=== PATIENT | female | born 1970 | race Caucasian/White ===

== ENCOUNTER 2016-08-20 19:23 | Emergency (ER) | payer MEDICAID ==
[2016-08-20 19:48] VITALS: BP 133/67
--- NOTE | 2016-08-20 20:12 | EDM.PDOC ---
ED HPI Behavioral Health - General Chief Complaint: Drug or Alcohol Abuse Stated Complaint: EVAL Time Seen by Provider: 08/20/16 19:55 Source: Reports: Patient, Family Exam Limitations: Reports: Intoxication - History of Present Illness INITIAL COMMENTS - FREE TEXT/NARRATIVE: 45-year-old chronic alcoholic with recurring detox and treatments has been "doing well" recently but is very intoxicated today and would like to go to detox. She is brought in by her mother. Severity: moderate - Related Data Allergies Allergy/AdvReac Type Severity Reaction Status Date / Time No Known Allergies Allergy Verified 08/20/16 19:38 Home Medications: Home Meds Norethindrone [Jolivette] 0.35 mg PO DAILY 10/01/14 [History] ALPRAZolam [Alprazolam] 0.5 mg PO ASDIRECTED PRN 07/16/15 [History] Potassium Chloride 10 meq PO BID 07/01/16 [History] buPROPion HCl [Wellbutrin SR] 300 mg PO DAILY 07/01/16 [History] Acamprosate [Campral] 333 mg PO ONETIME 08/20/16 [History] DULoxetine HCl [Duloxetine HCl] 1 tab PO DAILY 08/20/16 [History] Zolpidem [Ambien] 5 mg PO BEDTIME PRN 08/20/16 [History] Denies pain Pain Score (Numeric/FACES): 0 Past Medical History - Past Health History Medical/Surgical History: Denies Medical/Surgical History W[employer] History: Reports: Psychiatric History: Reports: Addiction, Anxiety, Depression, Other (see below) Other Psychiatric History: alcohol abuse - Infectious Disease History Infectious Disease History: Reports: Chicken pox - Past Surgical History HEENT Surgical History: Reports: Adenoidectomy, Tonsillectomy Social & Family History - Tobacco Use Smoking Status *Q: Current Every Day Smoker Years of Tobacco use: 25 Packs/Tins Daily: 1 Used Tobacco, but Quit: No Second Hand Smoke Exposure: Yes - Caffeine Use Caffeine Use: Reports: Coffee - Alcohol Use Days Per Week of Alcohol Use: 7 Number of Drinks Per Day: 10 Total Drinks Per Week: 70 - Recreational Drug Use Recreational Drug Use: No ED ROS GENERAL - Review of Systems Review Of Systems: See Below Constitutional: Denies: fever Respiratory: Denies: shortness of breath, cough Cardiovascular: Denies: Chest pain GI/Abdominal: Denies: Abdominal pain, Nausea : Reports: no symptoms Skin: Reports: no symptoms Neurological: Reports: other (Some slurred speech from her intoxication) ED EXAM, BEHAVIORAL HEALTH - Physical Exam Exam: See Below Exam Limited By: Intoxication General Appearance: alert, no apparent distress Eye Exam: bilateral eye: abnormal EOM (No jaundice) Respiratory/Chest: no respiratory distress, lungs clear Cardiovascular: regular rate, rhythm Neurological: alert Psychiatric: alert, other (Very intoxicated) Skin Exam: Warm, Dry COURSE, BEHAVIORAL HEALTH COMP - Course Vital Signs: Last Vital Signs Temp 98.1 F 08/20/16 19:48 Pulse 98 08/20/16 19:48 Resp 16 08/20/16 19:48 BP 133/67 08/20/16 19:48 Pulse Ox 96 08/20/16 19:48 Orders, Labs, Meds: Laboratory Tests 08/20/16 08/20/16 08/20/16 Range/Units 19:55 19:55 19:55 WBC 5.1 (4.5-11.0) K/uL RBC 4.30 (3.30-5.50) M/uL Hgb 14.8 (12.0-15.0) g/dL Hct 42.3 (36.0-48.0) % MCV 98 (80-98) fL MCH 34 H (27-31) pg MCHC 35 (32-36) % Plt Count 123 L (150-400) K/uL Neut % (Auto) 46 (36-66) % Lymph % (Auto) 42 (24-44) % Hill % (Auto) 9 H (2-6) % Eos % (Auto) 2 (2-4) % Baso % (Auto) 2 H (0-1) % Sodium 143 (140-148) mmol/L Potassium 3.4 L (3.6-5.2) mmol/L Chloride 102 (100-108) mmol/L Carbon Dioxide 27 (21-32) mmol/L Anion Gap 17.4 H (5.0-14.0) mmol/L BUN 12 D (7-18) mg/dL Creatinine 0.6 (0.6-1.0) mg/dL Est Cr Clr Drug Dosing 91.86 mL/min Estimated GFR (MDRD) > 60 (>60) Glucose 90 (74-106) mg/dL Calcium 8.3 L (8.5-10.1) mg/dL Urine Opiates Screen (NEGATIVE) Ur Oxycodone Screen (NEGATIVE) Urine Methadone Screen (NEGATIVE) Ur Propoxyphene Screen (NEGATIVE) Ur Barbiturates Screen (NEGATIVE) Ur Tricyclics Screen (NEGATIVE) Ur Phencyclidine Scrn (NEGATIVE) Ur Amphetamine Screen (NEGATIVE) U Methamphetamines Scrn (NEGATIVE) Urine MDMA Screen (NEGATIVE) U Benzodiazepines Scrn (NEGATIVE) U Cocaine Metab Screen (NEGATIVE) U Marijuana (THC) Screen (NEGATIVE) Ethyl Alcohol 444 mg/dL 08/20/16 Range/Units 20:08 WBC (4.5-11.0) K/uL RBC (3.30-5.50) M/uL Hgb (12.0-15.0) g/dL Hct (36.0-48.0) % MCV (80-98) fL MCH (27-31) pg MCHC (32-36) % Plt Count (150-400) K/uL Neut % (Auto) (36-66) % Lymph % (Auto) (24-44) % Hill % (Auto) (2-6) % Eos % (Auto) (2-4) % Baso % (Auto) (0-1) % Sodium (140-148) mmol/L Potassium (3.6-5.2) mmol/L Chloride (100-108) mmol/L Carbon Dioxide (21-32) mmol/L Anion Gap (5.0-14.0) mmol/L BUN (7-18) mg/dL Creatinine (0.6-1.0) mg/dL Est Cr Clr Drug Dosing mL/min Estimated GFR (MDRD) (>60) Glucose (74-106) mg/dL Calcium (8.5-10.1) mg/dL Urine Opiates Screen Negative (NEGATIVE) Ur Oxycodone Screen Negative (NEGATIVE) Urine Methadone Screen Negative (NEGATIVE) Ur Propoxyphene Screen Negative (NEGATIVE) Ur Barbiturates Screen Negative (NEGATIVE) Ur Tricyclics Screen Negative (NEGATIVE) Ur Phencyclidine Scrn Negative (NEGATIVE) Ur Amphetamine Screen Negative (NEGATIVE) U Methamphetamines Scrn Negative (NEGATIVE) Urine MDMA Screen Negative (NEGATIVE) U Benzodiazepines Scrn Positive H (NEGATIVE) U Cocaine Metab Screen Negative (NEGATIVE) U Marijuana (THC) Screen Negative (NEGATIVE) Ethyl Alcohol mg/dL Medications Discontinued Medications Generic Name Dose Route Start Last Admin Trade Name Madina PRN Reason Stop Dose Admin Multivitamins/Minerals 10 ml/ 1,017.2 mls @ 1,000 mls/hr 08/20/16 20:30 08/20 20:43 Thiamine HCl 100 mg/ Folic IV 1,000 mls/hr Acid 1 mg/ Magnesium Sulfate 3 ASDIRECTED MYAH Administration gm/ Sodium Chloride Re-Assessment/Re-Exam: Patient ambulates without difficulty, is taking fluids and despite being intoxicated she is not physically ill. A CBC, BMP and EtOH along with urine drug screen were obtained for screening to admission to detox. EtOH returned 0.444. An IV was then started and the patient was given a banana bag with alcohol being to lower her alcohol level to where she can go to [facility]. Patient received a full liter of fluid with multivitamins and magnesium. Her parents then transferred her to [facility] for detox. Departure - Departure Time of Disposition: 21:52 Disposition: DC/Tfer to Other Condition: fair Clinical Impression: Alcoholism, chronic Alcohol intoxication Qualifiers: Complication of substance-induced condition: uncomplicated Qualified Code(s): F10.120 - Alcohol abuse with intoxication, uncomplicated Instructions: Alcohol Use Disorder, Alcohol Intoxication, [id number] Referrals: Macie Allen PA [Primary Care Provider] - Forms: ED Department Discharge Care Plan Goals: Go directly to [facility] for admission for detox and treatment.
[2016-08-20] MEDS ORDERED: MVI, Adult with Vitamin K 10 ML, Thiamine 100 MG, Folic Acid 1 MG, Magnesium Sulfate 3 ... IV SCH ×5 (20:30)
== END 2016-08-20 21:52 | disposition other institution (70) ==
LOC: JP.ED 19:23
DX: F10.220 Alcohol dependence with intoxication, uncomplicated (principal); F17.210 Nicotine dependence, cigarettes, uncomplicated; Z79.899 Other long term (current) drug therapy; Z98.890 Other specified postprocedural states
CPT/HCPCS: 36415; 80048; 80305; 85025; 96365; 99283; G0480; J3411; J3475; J7040; J3490

== ENCOUNTER 2016-10-16 16:40 | Emergency (ER) | payer MEDICAID ==
[2016-10-16 17:07] VITALS: BP 146/93
[2016-10-16] MEDS ORDERED: LORazepam 2 MG/ML MDV IM PRN (17:56)
--- NOTE | 2016-10-16 18:02 | EDM.PDOC ---
ED HPI Behavioral Health - General Chief Complaint: Drug or Alcohol Abuse Stated Complaint: ALCOHOLISM Time Seen by Provider: 10/16/16 17:41 Source: Reports: Patient, Old records, RN notes reviewed Exam Limitations: Reports: No limitations - History of Present Illness INITIAL COMMENTS - FREE TEXT/NARRATIVE: 45-year-old female presents emergency department today asking for help with her alcohol abuse, she has been to the emergency department several times for alcohol intoxication has been to [facility] on multiple occasions. She is adamant that she wants to stop drinking does not want to go to [facility] she has reestablished with her sponsor she has a caregiver at home she would like to go through withdrawals at home and is asking for help - Related Data Allergies Allergy/AdvReac Type Severity Reaction Status Date / Time No Known Allergies Allergy Verified 08/20/16 19:38 Home Medications: Home Meds Norethindrone [Jolivette] 0.35 mg PO DAILY 10/01/14 [History] ALPRAZolam [Alprazolam] 0.5 mg PO ASDIRECTED PRN 07/16/15 [History] Potassium Chloride 10 meq PO BID 07/01/16 [History] buPROPion HCl [Wellbutrin SR] 300 mg PO DAILY 07/01/16 [History] Acamprosate [Campral] 333 mg PO ONETIME 08/20/16 [History] DULoxetine HCl [Duloxetine HCl] 1 tab PO DAILY 08/20/16 [History] Zolpidem [Ambien] 5 mg PO BEDTIME PRN 08/20/16 [History] 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: Psychiatric History: Reports: Addiction (Alcohol), Anxiety, Depression - Infectious Disease History Infectious Disease History: Reports: Chicken pox - Past Surgical History HEENT Surgical History: Reports: Adenoidectomy, Tonsillectomy Social & Family History - Tobacco Use Smoking Status *Q: Current Every Day Smoker Years of Tobacco use: 30 Packs/Tins Daily: 1 Used Tobacco, but Quit: No Second Hand Smoke Exposure: No - Caffeine Use Caffeine Use: Reports: Coffee - Alcohol Use Days Per Week of Alcohol Use: 7 Number of Drinks Per Day: 25 Total Drinks Per Week: 175 Date of Last Drink: 10/16/16 Time of Last Drink: 16:30 - Recreational Drug Use Recreational Drug Use: No ED ROS GENERAL - Review of Systems Review Of Systems: See Below Constitutional: Reports: other (Tremors shaking) HEENT: Reports: No symptoms Respiratory: Reports: No Symptoms Cardiovascular: Reports: No symptoms GI/Abdominal: Reports: No symptoms : Reports: no symptoms Psychiatric: Reports: Agitation ED EXAM, BEHAVIORAL HEALTH - Physical Exam Exam: See Below Exam Limited By: No limitations General Appearance: alert, WD/WN, mild distress Respiratory/Chest: no respiratory distress, lungs clear, normal breath sounds, no accessory muscle use Cardiovascular: no murmur, tachycardia Neurological: tremor Psychiatric: alert, normal affect, normal cognition, oriented, agitated COURSE, BEHAVIORAL HEALTH COMP - Course Vital Signs: Last Vital Signs Temp 98.2 F 10/16/16 17:08 Pulse 112 H 10/16/16 17:08 Resp 16 10/16/16 17:08 BP 146/93 H 10/16/16 17:08 Pulse Ox 95 10/16/16 17:08 Orders, Labs, Meds: Active Orders 24 hr Category Date Time Status LORazepam [Ativan] Med 10/16/16 17:56 Ordered 1 mg IM ONETIME PRN Medication Orders Lorazepam (Ativan) 1 mg IM ONETIME PRN PRN Reason: Anxiety Medications Generic Name Dose Route Start Last Admin Trade Name Freq PRN Reason Stop Dose Admin Lorazepam 1 mg 10/16/16 17:56 Ativan IM ONETIME PRN Anxiety Departure - Departure Time of Disposition: 18:01 Disposition: Home, Self-Care 01 Condition: fair Clinical Impression: Alcohol abuse Forms: ED Department Discharge Additional Instructions: Use Ativan as needed to help control the tremor symptoms, please call return to the ED with worsening symptoms, please report to your primary care provider in 3 -4 days for reevaluation - My Orders Last 24 Hours: My Active Orders 10/16/16 17:56 LORazepam [Ativan] 1 mg IM ONETIME PRN - Assessment/Plan Last 24 Hours: My Active Orders 10/16/16 17:56 LORazepam [Ativan] 1 mg IM ONETIME PRN Plan: Assessment Acuity = acute on chronic Site and laterality = alcohol abuse and dependence Etiology = Rum Manifestations = tremors Location of injury = home Lab values = none Plan I had a long discussion with her about alcohol withdrawal and delirium tremors she assures me she has a sponsor as well as a caregiver at home, I agreed to provide her with Ativan which she can use for symptomatic relief during her withdrawal. If the symptoms get worse she is to return to the emergency department otherwise follow up with her primary care in 3-4 days for reevaluation Patient was in agreement with the plan all questions were answered, they were instructed to return to the emergency department or call for worsening symptoms. This note was dictated using [employer] voice recognition software please call with any questions.
== END 2016-10-16 18:12 | disposition home or self-care (01) ==
LOC: JP.ED 16:40
DX: F10.10 Alcohol abuse, uncomplicated (principal); F41.9 Anxiety disorder, unspecified; F32.9 Major depressive disorder, single episode, unspecified; F17.210 Nicotine dependence, cigarettes, uncomplicated; Z98.890 Other specified postprocedural states; Z79.899 Other long term (current) drug therapy
CPT/HCPCS: 96372; 99284; J2060

== ENCOUNTER 2018-09-08 16:32 | Emergency (ER) | payer MEDICAID ==
[2018-09-08] MEDS ORDERED: Sodium Chloride 0.9% 10 ML Syringe FLUSH PRN (18:24)
[2018-09-08] MEDS ORDERED: fentaNYL 100 MCG/2 ML SDV IVPUSH ONE (18:25)
--- NOTE | 2018-09-08 18:29 | EDM.PDOC ---
ED HPI GENERAL MEDICAL PROBLEM - General Chief Complaint: Abdominal Pain Stated Complaint: ABD PAIN Time Seen by Provider: 09/08/18 18:07 Source of Information: Reports: Patient, Old Records, RN Notes Reviewed History Limitations: Reports: No Limitations - History of Present Illness INITIAL COMMENTS - FREE TEXT/NARRATIVE: 47-year-old female presents emergency department day complaint of abdominal pain mainly in her pelvic area, she does have a history of chronic alcoholism as well as an intra-abdominal abscess status post interventional radiology drainage. She states her last 24 hours she's developed abdominal pain with distention pain is positional worse when she stands up compared to lying down. No other symptoms nausea vomiting shortness breath chest pain no fevers no difficulties with urination or bowel movements Lower Abdominal Pain Score (Numeric/FACES): 2 - Related Data Allergies Allergy/AdvReac Type Severity Reaction Status Date / Time No Known Allergies Allergy Verified 05/22/18 09:46 Home Meds: Home Meds ALPRAZolam [Alprazolam] 0.5 mg PO ASDIRECTED PRN 07/16/15 [History] Zolpidem [Ambien] 5 mg PO BEDTIME PRN 08/20/16 [History] Cholecalciferol (Vitamin D3) [Vitamin D] 1 tab PO DAILY 01/14/18 [History] Methocarbamol 1 tab PO TID PRN 01/14/18 [History] PNV95/Ferrous Fumarate/FA [ Vitamins Tablet] 1 tab PO DAILY 01/14/18 [ History] traZODone HCl [Trazodone HCl] 100 mg PO DAILY PRN 01/14/18 [History] Ibuprofen [Advil] 200 mg PO Q6H PRN 09/08/18 [History] Past Medical History HEENT History: Reports: Impaired Vision Gastrointestinal History: Reports: Other (See Below) Other Gastrointestinal History: went almost 13 days without eating, emisis anytime she eat/drink anything. 05/2018 had abdominal mass removed with drainage of excess abdominal fluid. 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 Musculoskeletal Surgical History: Reports: None Social & Family History - Family History Family Medical History: Noncontributory - Tobacco Use Smoking Status *Q: Current Every Day Smoker Years of Tobacco use: 30 Packs/Tins Daily: 0.5 - Caffeine Use Caffeine Use: Reports: Coffee - Recreational Drug Use Recreational Drug Use: No ED ROS GENERAL - Review of Systems Review Of Systems: ROS reveals no pertinent complaints other than HPI. ED EXAM, GI/ABD - Physical Exam Exam: See Below Exam Limited By: No Limitations General Appearance: Alert, WD/WN, No Apparent Distress Head: Atraumatic, Normocephalic Neck: Normal Inspection, Supple, Non-Tender, Full Range of Motion Respiratory/Chest: No Respiratory Distress, Lungs Clear, Normal Breath Sounds, No Accessory Muscle Use, Chest Non-Tender Cardiovascular: Normal Peripheral Pulses, Regular Rate, Rhythm, No Murmur GI/Abdominal Exam: Soft, Distended, Guarding (Pelvic area), Tender Extremities: Normal Inspection, Non-Tender, No Pedal Edema Course - Vital Signs Last Recorded V/S: Last Vital Signs Temp 98.0 F 09/08/18 17:46 Pulse 73 09/08/18 17:46 Resp 16 09/08/18 17:46 BP 110/61 09/08/18 17:46 Pulse Ox 99 09/08/18 17:46 - Orders/Labs/Meds Orders: Active Orders 24 hr Category Date Time Status Peripheral IV Care [RC] . DIRECTED Care 09/08/18 18:24 Active Iopamidol [Isovue-300 (61%)] Med 09/08/18 18:45 Active 84 ml IV . DIRECTED Lactated Ringers [Ringers, Lactated] 1,000 ml Med 09/08/18 18:30 Active IV ASDIRECTED Sodium Chloride 0.9% [Saline Flush] Med 09/08/18 18:24 Active 10 ml FLUSH ASDIRECTED PRN Peripheral IV Insertion Adult [OM.PC] Urgent Oth 09/08/18 18:24 Ordered Medication Orders Lactated Ringer's (Ringers, Lactated) 1,000 mls @ 999 mls/hr IV ASDIRECTED [facility] Last Admin: 09/08/18 18:32 Dose: 999 mls/hr Iopamidol (Isovue-300 (61%)) 84 ml IV . DIRECTED MYAH Last Admin: 09/08/18 19:13 Dose: 81 ml Sodium Chloride (Saline Flush) 10 ml FLUSH ASDIRECTED PRN PRN Reason: Keep Vein Open Last Admin: 09/08/18 18:33 Dose: 10 ml Labs: Laboratory Tests 09/08/18 09/08/18 09/08/18 Range/Units 18:24 18:26 18:32 WBC (4.5-11.0) K/uL RBC (3.30-5.50) M/uL Hgb (12.0-15.0) g/dL Hct (36.0-48.0) % MCV (80-98) fL MCH (27-31) pg MCHC (32-36) % Plt Count (150-400) K/uL Neut % (Auto) (36-66) % Lymph % (Auto) (24-44) % Nicholas % (Auto) (2-6) % Eos % (Auto) (2-4) % Baso % (Auto) (0-1) % Sodium (140-148) mmol/L Potassium (3.6-5.2) mmol/L Chloride (100-108) mmol/L Carbon Dioxide (21-32) mmol/L Anion Gap (5.0-14.0) mmol/L BUN (7-18) mg/dL Creatinine (0.6-1.0) mg/dL Est Cr Clr Drug Dosing mL/min Estimated GFR (MDRD) (>60) Glucose (74-106) mg/dL Lactic Acid (0.4-2.0) mmol/L Calcium (8.5-10.1) mg/dL Total Bilirubin (0.2-1.0) mg/dL AST (15-37) U/L ALT (12-78) U/L Alkaline Phosphatase (46-116) U/L Total Protein (6.4-8.2) g/dL Albumin (3.4-5.0) g/dL Globulin (2.3-3.5) g/dL Albumin/Globulin Ratio (1.2-2.2) Lipase (73-393) U/L Urine Color Yellow Urine Appearance Slightly cloudy Urine pH 6.0 (4.5-8.0) Ur Specific Randolph 1.025 (1.008-1.030) Urine Protein Negative (NEGATIVE) mg/dL Urine Glucose (UA) Normal (NEGATIVE) mg/dL Urine Ketones Negative (NEGATIVE) mg/dL Urine Occult Blood Negative (NEGATIVE) Urine Nitrite Negative (NEGATIVE) Urine Bilirubin Negative (NEGATIVE) Urine Urobilinogen Normal (NORMAL) mg/dL Ur Leukocyte Esterase Small (NEGATIVE) Urine RBC Not seen (0-5) Urine WBC 10-20 H (0-5) Ur Epithelial Cells Many Amorphous Sediment Moderate Urine Bacteria Moderate Urine Mucus Numerous Urine HCG, Qual Negative Urine Opiates Screen (NEGATIVE) Ur Oxycodone Screen (NEGATIVE) Urine Methadone Screen (NEGATIVE) Ur Propoxyphene Screen (NEGATIVE) Ur Barbiturates Screen (NEGATIVE) Ur Tricyclics Screen (NEGATIVE) Ur Phencyclidine Scrn (NEGATIVE) Ur Amphetamine Screen (NEGATIVE) U Methamphetamines Scrn (NEGATIVE) Urine MDMA Screen (NEGATIVE) U Benzodiazepines Scrn (NEGATIVE) U Cocaine Metab Screen (NEGATIVE) U Marijuana (THC) Screen (NEGATIVE) Ethyl Alcohol < 3 mg/dL 09/08/18 09/08/18 09/08/18 Range/Units 18:32 18:35 18:35 WBC 8.5 (4.5-11.0) K/uL RBC 4.25 (3.30-5.50) M/uL Hgb 13.5 (12.0-15.0) g/dL Hct 41.6 (36.0-48.0) % MCV 98 (80-98) fL MCH 32 H (27-31) pg MCHC 33 (32-36) % Plt Count 253 (150-400) K/uL Neut % (Auto) 62 (36-66) % Lymph % (Auto) 28 (24-44) % Nicholas % (Auto) 8 H (2-6) % Eos % (Auto) 2 (2-4) % Baso % (Auto) 1 (0-1) % Sodium 139 L (140-148) mmol/L Potassium 4.0 (3.6-5.2) mmol/L Chloride 103 (100-108) mmol/L Carbon Dioxide 28 (21-32) mmol/L Anion Gap 12.0 (5.0-14.0) mmol/L BUN 14 (7-18) mg/dL Creatinine 0.5 L (0.6-1.0) mg/dL Est Cr Clr Drug Dosing 111.33 mL/min Estimated GFR (MDRD) > 60 (>60) Glucose 79 (74-106) mg/dL Lactic Acid (0.4-2.0) mmol/L Calcium 9.3 (8.5-10.1) mg/dL Total Bilirubin 0.3 D (0.2-1.0) mg/dL AST 18 (15-37) U/L ALT 19 (12-78) U/L Alkaline Phosphatase 103 (46-116) U/L Total Protein 6.9 (6.4-8.2) g/dL Albumin 3.3 L (3.4-5.0) g/dL Globulin 3.6 H (2.3-3.5) g/dL Albumin/Globulin Ratio 0.9 L (1.2-2.2) Lipase 170 (73-393) U/L Urine Color Urine Appearance Urine pH (4.5-8.0) Ur Specific Randolph (1.008-1.030) Urine Protein (NEGATIVE) mg/dL Urine Glucose (UA) (NEGATIVE) mg/dL Urine Ketones (NEGATIVE) mg/dL Urine Occult Blood (NEGATIVE) Urine Nitrite (NEGATIVE) Urine Bilirubin (NEGATIVE) Urine Urobilinogen (NORMAL) mg/dL Ur Leukocyte Esterase (NEGATIVE) Urine RBC (0-5) Urine WBC (0-5) Ur Epithelial Cells Amorphous Sediment Urine Bacteria Urine Mucus Urine HCG, Qual Urine Opiates Screen Negative (NEGATIVE) Ur Oxycodone Screen Negative (NEGATIVE) Urine Methadone Screen Negative (NEGATIVE) Ur Propoxyphene Screen Negative (NEGATIVE) Ur Barbiturates Screen Negative (NEGATIVE) Ur Tricyclics Screen Negative (NEGATIVE) Ur Phencyclidine Scrn Negative (NEGATIVE) Ur Amphetamine Screen Negative (NEGATIVE) U Methamphetamines Scrn Negative (NEGATIVE) Urine MDMA Screen Negative (NEGATIVE) U Benzodiazepines Scrn Negative (NEGATIVE) U Cocaine Metab Screen Negative (NEGATIVE) U Marijuana (THC) Screen Negative (NEGATIVE) Ethyl Alcohol mg/dL 09/08/18 Range/Units 18:35 WBC (4.5-11.0) K/uL RBC (3.30-5.50) M/uL Hgb (12.0-15.0) g/dL Hct (36.0-48.0) % MCV (80-98) fL MCH (27-31) pg MCHC (32-36) % Plt Count (150-400) K/uL Neut % (Auto) (36-66) % Lymph % (Auto) (24-44) % Nicholas % (Auto) (2-6) % Eos % (Auto) (2-4) % Baso % (Auto) (0-1) % Sodium (140-148) mmol/L Potassium (3.6-5.2) mmol/L Chloride (100-108) mmol/L Carbon Dioxide (21-32) mmol/L Anion Gap (5.0-14.0) mmol/L BUN (7-18) mg/dL Creatinine (0.6-1.0) mg/dL Est Cr Clr Drug Dosing mL/min Estimated GFR (MDRD) (>60) Glucose (74-106) mg/dL Lactic Acid 0.9 (0.4-2.0) mmol/L Calcium (8.5-10.1) mg/dL Total Bilirubin (0.2-1.0) mg/dL AST (15-37) U/L ALT (12-78) U/L Alkaline Phosphatase (46-116) U/L Total Protein (6.4-8.2) g/dL Albumin (3.4-5.0) g/dL Globulin (2.3-3.5) g/dL Albumin/Globulin Ratio (1.2-2.2) Lipase (73-393) U/L Urine Color Urine Appearance Urine pH (4.5-8.0) Ur Specific Randolph (1.008-1.030) Urine Protein (NEGATIVE) mg/dL Urine Glucose (UA) (NEGATIVE) mg/dL Urine Ketones (NEGATIVE) mg/dL Urine Occult Blood (NEGATIVE) Urine Nitrite (NEGATIVE) Urine Bilirubin (NEGATIVE) Urine Urobilinogen (NORMAL) mg/dL Ur Leukocyte Esterase (NEGATIVE) Urine RBC (0-5) Urine WBC (0-5) Ur Epithelial Cells Amorphous Sediment Urine Bacteria Urine Mucus Urine HCG, Qual Urine Opiates Screen (NEGATIVE) Ur Oxycodone Screen (NEGATIVE) Urine Methadone Screen (NEGATIVE) Ur Propoxyphene Screen (NEGATIVE) Ur Barbiturates Screen (NEGATIVE) Ur Tricyclics Screen (NEGATIVE) Ur Phencyclidine Scrn (NEGATIVE) Ur Amphetamine Screen (NEGATIVE) U Methamphetamines Scrn (NEGATIVE) Urine MDMA Screen (NEGATIVE) U Benzodiazepines Scrn (NEGATIVE) U Cocaine Metab Screen (NEGATIVE) U Marijuana (THC) Screen (NEGATIVE) Ethyl Alcohol mg/dL Meds: Medications Generic Name Dose Route Start Last Admin Trade Name Freq PRN Reason Stop Dose Admin Lactated Ringer's 1,000 mls @ 999 mls/hr 09/08/18 18:30 09/08/18 18:32 Ringers, Lactated IV 999 mls/hr ASDIRECTED MYAH Administration Iopamidol 84 ml 09/08/18 18:45 09/08/18 19:13 Isovue-300 (61%) IV 81 ml . DIRECTED MYAH Administration Sodium Chloride 10 ml 09/08/18 18:24 09/08/18 18:33 Saline Flush FLUSH 10 ml ASDIRECTED PRN Administration Keep Vein Open Discontinued Medications Generic Name Dose Route Start Last Admin Trade Name Freq PRN Reason Stop Dose Admin Fentanyl 50 mcg 09/08/18 18:25 09/08/18 18:35 Sublimaze IVPUSH 09/08/18 18:26 50 mcg ONETIME ONE Administration Sodium Chloride 80 mls @ 3.5 mls/sec 09/08/18 18:38 09/08/18 19:13 Normal Saline IV 09/08/18 18:39 3.5 mls/sec ONETIME ONE Administration Sodium Chloride 10 ml 09/08/18 18:38 09/08/18 19:13 Saline Flush FLUSH 09/08/18 18:39 10 ml ONETIME ONE Administration Departure - Departure Time of Disposition: 20:31 Disposition: Home, Self-Care 01 Condition: Fair Clinical Impression: Diverticulitis of sigmoid colon - Discharge Information Referrals: Macie Allen PA [Primary Care Provider] - Forms: ED Department Discharge Additional Instructions: Take full course of antibiotics antibiotics of Augmentin 875 by mouth twice a day 10 days prescription for hydrocodone 5/325 one tab by mouth every 4 hours when necessary total #10 for pain follow-up with primary care in 3-5 days if no improvement - My Orders Last 24 Hours: My Active Orders 09/08/18 18:24 Peripheral IV Care [RC] . DIRECTED Sodium Chloride 0.9% [Saline Flush] 10 ml FLUSH ASDIRECTED PRN Peripheral IV Insertion Adult [OM.PC] Urgent 09/08/18 18:30 Lactated Ringers [Ringers, Lactated] 1,000 ml IV ASDIRECTED 09/08/18 18:45 Iopamidol [Isovue-300 (61%)] 84 ml IV . DIRECTED - Assessment/Plan Last 24 Hours: My Active Orders 09/08/18 18:24 Peripheral IV Care [RC] . DIRECTED Sodium Chloride 0.9% [Saline Flush] 10 ml FLUSH ASDIRECTED PRN Peripheral IV Insertion Adult [OM.PC] Urgent 09/08/18 18:30 Lactated Ringers [Ringers, Lactated] 1,000 ml IV ASDIRECTED 09/08/18 18:45 Iopamidol [Isovue-300 (61%)] 84 ml IV . DIRECTED Plan: Assessment Acuity = acute Site and laterality = sigmoid diverticulitis Etiology = unknown etiology Manifestations = abdominal pain Location of injury = Home Lab values = CBC, CMP, urinalysis, urine drug screen alcohol negative CT scan shows diverticulitis sigmoid region as well as cholelithiasis and left renal stone 2 mm in size nonobstructing Plan I did review lab CT scan results with her she is placed on antibiotics of Augmentin 875 by mouth twice a day 10 days prescription for hydrocodone 5/325 one tab by mouth every 4 hours when necessary total #10 follow-up with primary care in 3-5 days if no improvement This note was dictated using [employer] voice recognition software please call with any questions on syntax or grammar.
[2018-09-08] MEDS ORDERED: Lactated Ringers 1,000 ML IV SCH (18:30)
[2018-09-08] MEDS ORDERED: Sodium Chloride 0.9% 10 ML Syringe FLUSH ONE (18:38)
[2018-09-08] MEDS ORDERED: Sodium Chloride 0.9% 80 ML IV ONE (18:38)
[2018-09-08] MEDS ORDERED: Iopamidol 612 MG/ML 100 ML Bottle IV SCH (18:45)
--- NOTE | 2018-09-08 20:18 | CRLCT ---
INDICATION: Pelvic pain TECHNIQUE: CT abdomen and pelvis acquired with 81 cc Isovue-300 IV contrast. COMPARISON: May 22 FINDINGS: Lower chest: Linear atelectasis at both lung bases. Liver: Unremarkable. Spleen: Unremarkable. Pancreas: Unremarkable. Gallbladder and bile ducts: Cholelithiasis. Adrenal glands: Unremarkable. Kidneys: Simple cysts left kidney. 2 mm nonobstructive left renal stone. GI tract: Circumferential wall thickening of the mid sigmoid colon. Mild pericolonic fat stranding in this region. There are a few diverticula within the sigmoid colon. No extraluminal air or abscess. This process is in the same location compared to the prior exam. Moderate amount of feces in the remainder of the colon.. Appendix is normal. Vascular structures: Unremarkable. Lymph nodes: Unremarkable. Miscellaneous: Unremarkable. No free air or significant free fluid. Pelvic Organs: Unremarkable. Bones: Unremarkable for age. IMPRESSION: Recurrent mid sigmoid diverticulitis. No abscess or extraluminal air. Cholelithiasis. Nonobstructive left renal stone. Please note that all CT scans at this facility use dose modulation, iterative reconstruction, and/or weight-based dosing when appropriate to reduce radiation dose to as low as reasonably achievable. Dictated by Denisse Mitchell MD @ Sep 08 2018 8:02PM Signed by Dr. Denisse Mitchell @ Sep 08 2018 8:18PM
[2018-09-08 20:36] VITALS: BP 115/66
== END 2018-09-08 20:37 | disposition home or self-care (01) ==
LOC: JP.ED 16:32
DX: K57.33 Diverticulitis of large intestine without perforation or abscess with bleeding (principal); F17.210 Nicotine dependence, cigarettes, uncomplicated; Z79.899 Other long term (current) drug therapy
CPT/HCPCS: 36415; 74177; 80053; 80305; 81001; 81025; 83605; 83690; 85025; 96361; 96374; 99284; G0480; J3010; J7030; J7120; Q9967

== ENCOUNTER 2018-10-12 23:48 | Emergency (ER) | payer MEDICAID ==
[2018-10-13 00:06] VITALS: BP 118/77
[2018-10-13] MEDS ORDERED: predniSONE 10 MG Tab PO STA (00:40)
--- NOTE | 2018-10-13 00:47 | EDM.PDOC ---
ED HPI GENERAL MEDICAL PROBLEM - General Chief Complaint: General Stated Complaint: BODY ACHES Time Seen by Provider: 10/13/18 00:11 Source of Information: Reports: Patient, Old Records, RN Notes Reviewed History Limitations: Reports: No Limitations - History of Present Illness INITIAL COMMENTS - FREE TEXT/NARRATIVE: 47-year-old female presents emergency department today complaint of muscle pain and joint pain, she states it has been going on for months and is progressively getting worse, she has been evaluated in the clinic without much relief, has had extensive lab work done without any etiology she describes her pain in the back of the buttocks in her feet worse in the morning does improve throughout the day. Review blood work shows normal sedimentation rate normal CRPs however she did have an elevated CRP up to 4.04 months ago remainder lab work has been unremarkable she is tried a variety of medications without any relief tick panel was also negative Generalized Pain Score (Numeric/FACES): 9 - Related Data Allergies Allergy/AdvReac Type Severity Reaction Status Date / Time No Known Allergies Allergy Verified 05/22/18 09:46 Home Meds: Home Meds Zolpidem [Ambien] 5 mg PO BEDTIME PRN 08/20/16 [History] Cholecalciferol (Vitamin D3) [Vitamin D] 1 tab PO DAILY 01/14/18 [History] PNV95/Ferrous Fumarate/FA [ Vitamins Tablet] 1 tab PO DAILY 01/14/18 [ History] traZODone HCl [Trazodone HCl] 100 mg PO DAILY PRN 01/14/18 [History] Ibuprofen [Advil] 200 mg PO Q6H PRN 09/08/18 [History] Citalopram [Citalopram HBr] 10 mg PO DAILY 10/13/18 [History] Past Medical History HEENT History: Reports: Impaired Vision Gastrointestinal History: Reports: Other (See Below) Other Gastrointestinal History: went almost 13 days without eating, emisis anytime she eat/drink anything. 05/2018 had abdominal mass removed with drainage of excess abdominal fluid. 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 Musculoskeletal Surgical History: Reports: None Social & Family History - Family History Family Medical History: Noncontributory - Tobacco Use Smoking Status *Q: Current Status Unknown - Caffeine Use Caffeine Use: Reports: Coffee - Recreational Drug Use Recreational Drug Use: No ED ROS GENERAL - Review of Systems Review Of Systems: See Below Constitutional: Reports: No Symptoms HEENT: Reports: No Symptoms Respiratory: Reports: No Symptoms Cardiovascular: Reports: No Symptoms GI/Abdominal: Reports: No Symptoms : Reports: No Symptoms Musculoskeletal: Reports: Joint Pain, Muscle Pain, Muscle Stiffness Skin: Reports: No Symptoms Neurological: Reports: No Symptoms ED EXAM, GENERAL - Physical Exam Exam: See Below Exam Limited By: No Limitations General Appearance: Alert, WD/WN, No Apparent Distress Respiratory/Chest: No Respiratory Distress, Lungs Clear, Normal Breath Sounds, No Accessory Muscle Use, Chest Non-Tender Cardiovascular: Regular Rate, Rhythm, No Murmur GI/Abdominal: Soft, Non-Tender Course - Vital Signs Last Recorded V/S: Last Vital Signs Temp 96.8 F 10/13/18 00:05 Pulse 74 10/13/18 00:05 Resp 16 10/13/18 00:05 BP 118/77 10/13/18 00:05 Pulse Ox 99 10/13/18 00:05 - Orders/Labs/Meds Orders: Active Orders 24 hr Category Date Time Status LYRIC W/REFLEX Urgent Lab 10/13/18 00:31 Ordered CCP ANTIBODIES IGG/IGA Urgent Lab 10/13/18 00:31 Ordered predniSONE Med 10/13/18 00:40 Stat 15 mg PO NOW STA Medication Orders Prednisone (Prednisone) 15 mg PO NOW STA Stop: 10/13/18 00:41 Meds: Medications Generic Name Dose Route Start Last Admin Trade Name Madina PRN Reason Stop Dose Admin Prednisone 15 mg 10/13/18 00:40 Prednisone PO 10/13/18 00:41 NOW STA Departure - Departure Time of Disposition: 00:46 Disposition: Home, Self-Care 01 Condition: Fair Clinical Impression: Polymyalgia - Discharge Information Referrals: PCP,None [Primary Care Provider] - Additional Instructions: Start the prednisone 15 mg once a day, please keep your follow-up appointment with your primary care on Saturday of next week - My Orders Last 24 Hours: My Active Orders 10/13/18 00:31 LYRIC W/REFLEX Urgent CCP ANTIBODIES IGG/IGA Urgent 10/13/18 00:40 predniSONE 15 mg PO NOW STA - Assessment/Plan Last 24 Hours: My Active Orders 10/13/18 00:31 LYRIC W/REFLEX Urgent CCP ANTIBODIES IGG/IGA Urgent 10/13/18 00:40 predniSONE 15 mg PO NOW STA Plan: Assessment Acuity = acute Site and laterality = muscle and joint pain multiple Etiology = suspicious for polymyalgia rheumatica Manifestations = none Location of injury = Home Lab values = Lyric, anti-CCP and rheumatoid factor all pending Plan Trial of 15 mg prednisone initiated night prescription written for 50 mg once a day she does have follow-up appointment with her primary care on Saturday if this is polymyalgia rheumatica she should have remarkable relief with the prednisone the remainder lab work is Pending recommend consultation with rheumatology if no relief This note was dictated using [employer] voice recognition software please call with any questions on syntax or grammar.
[2018-10-13] MEDS ORDERED: Ketorolac 60 MG/2 ML SDV IM ONE (01:01)
== END 2018-10-13 01:13 | disposition home or self-care (01) ==
LOC: JP.ED 23:48
DX: M35.3 Polymyalgia rheumatica (principal); M25.50 Pain in unspecified joint; F41.9 Anxiety disorder, unspecified; F32.9 Major depressive disorder, single episode, unspecified; Z79.899 Other long term (current) drug therapy
CPT/HCPCS: 86038; 86200; 86431; 96372; 99283; A9270; J1885

== ENCOUNTER 2018-12-23 10:40 | Day surgery (SDC) | payer MEDICAID ==
[~2018-12-23 10:40] MED LIST: Midazolam 1 MG/ML 2 ML SDV ONE; Propofol 200 MG/20 ML SDV ONE; fentaNYL 100 MCG/2 ML SDV ONE
[2018-12-23] MEDS ORDERED: Dextrose 5%-Lactated Ringers 1,000 ML IV SCH (10:45)
[2018-12-23] MEDS ORDERED: Glycopyrrolate 0.2 MG/ML 2 ML SDV IVPUSH ONE (11:30)
[2018-12-23] MEDS ORDERED: Acetaminophen 500 MG Tab PO ONE (11:45)
[2018-12-23] MEDS ORDERED: Propofol 200 MG/20 ML SDV ONE (12:11)
[2018-12-23 13:31] VITALS: BP 94/65; PULSE 79
--- NOTE | 2019-01-02 21:59 | OR ---
DATE OF PROCEDURE: 12/23/2018 PREOPERATIVE DIAGNOSES: 1. Bloating and nausea involving the lower and mid abdomen. 2. History of perforated sigmoid colon diverticulitis treated by pericolonic abscess drainage with bowel resection. POSTOPERATIVE DIAGNOSES: 1. Normal upper GI endoscopic examination. 2. Colonoscopy with;. a. Uncomplicated sigmoid colon diverticulosis (no significant mucosal inflammation or colonic stricturing). b. Single 8 mm polyp at the junction of the rectum and sigmoid colon (15 cm from the dentate line). OPERATIVE PROCEDURES: 1. Esophagogastroduodenoscopy. 2. Flexible colonoscopy with polypectomy by snare technique. ANESTHESIA: IV sedation. INDICATION FOR PROCEDURE: This is a 48-year-old woman presenting with a sense of abdominal distention and bloating in the mid and lower abdomen associated with some nausea. She has been taking some MiraLAX at relatively lower doses. She is status post a percutaneous drainage of the pericolonic abscess leading to perforated sigmoid colon diverticulitis in May of this past year. To investigate these symptoms, the patient is to undergo an upper and lower endoscopy. Potential risks including bleeding and perforation were discussed, and the patient wishes to proceed. DETAILS OF PROCEDURE: The patient was taken to the operating room and placed in a left lateral decubitus position. IV sedation was administered, after which the upper GI endoscope was passed orally through the length of the esophagus into the stomach with retroflexion view of the fundus, thereafter through the pyloric channel and into the proximal duodenum. Findings included normal hypopharynx, larynx, upper esophageal sphincter, and esophageal body. At the EG junction, there was no significant inflammation or hiatal hernia. Within the stomach, there was no retained fluid or food and the remainder of the gastric and duodenal exams to the level of the junction of the third and fourth portions of the duodenum were unremarkable. The upper GI endoscope was then withdrawn and the above findings were reconfirmed. Attention was then taken to the colonoscopy. The initial digital rectal exam was performed and was unremarkable. Colonoscope was passed into the rectum with retroflexion revealing uncomplicated hemorrhoidal columns. The scope was eventually passed to the cecum. The prep was fairly good with only a small amount of liquid stool present. The patient did have fair number of sigmoid colon diverticula but these were not associated with any significant mucosal inflammation or stricturing. The prep overall was fairly good. Specifically, there were no areas of colitis. Upon withdrawal of scope, a single 8 mm polyp 15 cm from the dentate line was identified. This was encircled out with the snare and excised and sent for histologic evaluation. Good hemostasis was confirmed at the polypectomy site and the scope was then withdrawn and the procedure was then concluded. The plan at this time will be to recommend repeat colonoscopy in 2 years and she will also be set up to see Macie Allen PA-C. I will see her in clinic in about 2 weeks regarding bloating. This patient is someone who needed to be on little bit more aggressive anti-constipation regimen. If one is unsuccessful in treating this, getting Gastroenterology consultation may be helpful as well. Jay Stevens MD /[id number]
== END 2018-12-23 13:54 | disposition home or self-care (01) ==
LOC: JP.SDS 10:40
PROVIDERS: ATTEND Surgery
DX: D12.7 Benign neoplasm of rectosigmoid junction (principal); K57.30 Diverticulosis of large intestine without perforation or abscess without bleeding; K64.9 Unspecified hemorrhoids; F41.9 Anxiety disorder, unspecified; F32.9 Major depressive disorder, single episode, unspecified; R73.03 Prediabetes; F17.210 Nicotine dependence, cigarettes, uncomplicated
CPT/HCPCS: 43235; 45385; 88305; A9270; J2250; J2704; J3010; J3490; J7042

== ENCOUNTER 2021-06-29 23:29 | Emergency (ER) | payer MEDICAID ==
[2021-06-29 23:48] VITALS: BP 124/72; PULSE 122
[2021-06-30 00:45] LABS: CORONAVIRUS COVID-19 NAA POSITIVE (NEGATIVE)
== END 2021-06-30 00:56 | disposition home or self-care (01) ==
LOC: JP.ED 23:29
DX: U07.1 COVID-19 (principal)
CPT/HCPCS: 0241U; 36415; 80053; 85025; 86140; 99283

== ENCOUNTER 2021-12-02 12:46 | Emergency (ER) | payer BC, MEDICAID ==
[2021-12-02] MEDS ORDERED: Doxycycline 100 MG in Sodium Chloride 0.9% 100 ML IV ONE (13:24)
[2021-12-02] MEDS ORDERED: Sodium Chloride 0.9% 10 ML Syringe FLUSH PRN (13:24)
[2021-12-02] MEDS ORDERED: Ketorolac 30 MG/ML SDV IVPUSH ONE (13:26)
[2021-12-02 14:06] LABS: ESTIMATED GFR 89 mL/min (>60)
[2021-12-02] MEDS ORDERED: LORazepam 2 MG/ML SDV IVPUSH ONE (14:15)
[2021-12-02] MEDS ORDERED: Lactated Ringers 1,000 ML IV ONE (14:15)
[2021-12-02 14:29] VITALS: BP 113/69; PULSE 94
[2021-12-02] MEDS ORDERED: fentaNYL 100 MCG/2 ML SDV IVPUSH ONE (14:45)
== END 2021-12-02 16:02 | disposition home or self-care (01) ==
LOC: JP.ED 12:46
DX: A69.20 Lyme disease, unspecified (principal); F17.210 Nicotine dependence, cigarettes, uncomplicated
CPT/HCPCS: 80053; 83605; 84145; 85025; 86140; 86617; 86618; 86666; 86753; 96365; 96375; 99282; 99283; J1885; J2060; J3010; J3490; J7120

== ENCOUNTER 2022-11-04 22:18 | Emergency (ER) | payer BC, MEDICAID ==
[2022-11-04 22:35] VITALS: BP 119/68; PULSE 89
[2022-11-04 23:23] LABS: BASOPHILS PERCENT AUTO 0.4 % (0.1-1.3); EOSINOPHILS ABSOLUTE AUTO 0.16 K/uL (0.00-0.40); EOSINOPHILS PERCENT AUTO 3.3 % (0.0-5.4); HEMATOCRIT 34.9 % (34.3-46.0); HEMOGLOBIN 12.2 g/dL (11.2-15.5); IMMATURE GRAN ABSOLUTE AUTO 0.03 K/uL (0.00-0.23); IMMATURE GRAN PERCENT AUTO 0.6 % (0.0-0.7); LYMPHOCYTES ABSOLUTE AUTO 0.57 K/uL (0.8-3.3); LYMPHOCYTES PERCENT AUTO 11.6 % (11.4-47.7); MEAN CORPUSCULAR HEMOGLOBIN 30.7 pg (31.6-35.5); MEAN CORPUSCULAR VOLUME 87.9 fL (81.4-99.0); MONOCYTES ABSOLUTE AUTO 0.85 K/uL (0.20-0.90); MONOCYTES PERCENT AUTO 17.3 % (3.3-12.6); NEUTROPHILS ABSOLUTE AUTO 3.28 K/uL (1.0-7.6); NEUTROPHILS PERCENT AUTO 66.8 % (40.0-78.1); PLATELET COUNT,PLT 175 K/uL (130-375); RED BLOOD CELL COUNT 3.97 M/uL (3.77-5.24); WHITE BLOOD CELL COUNT,WBC 4.9 K/uL (3.2-11.0)
[2022-11-04 23:27] LABS: BASOPHILS ABSOLUTE AUTO 0.02 K/uL (0.00-0.10)
[2022-11-05] MEDS ORDERED: traZODone 50 MG Tab PO ONE (00:01)
[2022-11-05] MEDS ORDERED: Ketorolac 30 MG/ML SDV IM ONE (00:10)
== END 2022-11-05 00:34 | disposition home or self-care (01) ==
LOC: JP.ED 22:18
DX: U07.1 COVID-19 (principal); F17.210 Nicotine dependence, cigarettes, uncomplicated
CPT/HCPCS: 36415; 71045; 85025; 86140; 87635; 96372; 99284; A9270; J1885; U0002

== ENCOUNTER 2023-06-05 10:24 | Emergency (ER) | payer BC, MEDICAID ==
[2023-06-05 10:54] VITALS: BP 125/66; PULSE 84
[2023-06-05 11:20] LABS: AMORPHOUS SEDIMENT,URINE NOT SEEN; APPEARANCE,URINE CLOUDY (CLEAR); BACTERIA,URINE FEW; COLOR,URINE YELLOW (YELLOW); EPITHELIAL CELLS,URINE FEW; MUCUS,URINE NOT SEEN; RBC,URINE PACKED (0-5)
[2023-06-05] MEDS: Ketorolac 30 MG/ML SDV IM ONE (12:03)
[2023-06-05] MEDS: Tamsulosin 0.4 MG Cap.ER PO ONE (12:42)
== END 2023-06-05 12:47 | disposition home or self-care (01) ==
LOC: JP.ED 10:24
DX: N20.0 Calculus of kidney (principal); N23 Unspecified renal colic; Z79.899 Other long term (current) drug therapy; F17.210 Nicotine dependence, cigarettes, uncomplicated
CPT/HCPCS: 74176; 81001; 87086; 96372; 99284; A9270; J1885

== ENCOUNTER 2024-05-25 15:45 | Emergency (ER) | payer BC ==
[2024-05-25 16:36] LABS: BILIRUBIN,URINE NEGATIVE (NEGATIVE); COLOR,URINE YELLOW (YELLOW); GLUCOSE,URINE NEGATIVE (NEGATIVE); KETONES,URINE NEGATIVE (NEGATIVE); LEUKOCYTE ESTERASE,URINE SMALL (NEGATIVE); NITRITE,URINE NEGATIVE (NEGATIVE); OCCULT BLOOD,URINE LARGE (NEGATIVE); PROTEIN,URINE 100 mg/dL (NEGATIVE)
[2024-05-25 16:42] LABS: AMORPHOUS SEDIMENT,URINE NOT SEEN; APPEARANCE,URINE CLOUDY (CLEAR); BACTERIA,URINE FEW; EPITHELIAL CELLS,URINE RARE; MUCUS,URINE NOT SEEN; RBC,URINE 40-50 (0-5)
[2024-05-25] MEDS: Ketorolac 30 MG/ML SDV IM ONE (17:25)
[2024-05-25] MEDS ORDERED: Sodium Chloride 0.9% 10 ML Syringe FLUSH PRN (17:30)
[2024-05-25 17:43] LABS: BASOPHILS ABSOLUTE AUTO 0.04 K/uL (0.00-0.10); BASOPHILS PERCENT AUTO 0.4 % (0.1-1.3); EOSINOPHILS ABSOLUTE AUTO 0.45 K/uL (0.00-0.40); EOSINOPHILS PERCENT AUTO 4.6 % (0.0-5.4); HEMATOCRIT 40.1 % (34.3-46.0); HEMOGLOBIN 13.8 g/dL (11.2-15.5); IMMATURE GRAN PERCENT AUTO 0.2 % (0.0-0.7); LYMPHOCYTES ABSOLUTE AUTO 2.85 K/uL (0.8-3.3); LYMPHOCYTES PERCENT AUTO 29.3 % (11.4-47.7); MEAN CORPUSCULAR HEMOGLOBIN 30.9 pg (31.6-35.5); MEAN CORPUSCULAR HGB CONC 34.4 g/dL (31.6-35.5); MEAN CORPUSCULAR VOLUME 89.7 fL (81.4-99.0); MONOCYTES ABSOLUTE AUTO 0.63 K/uL (0.20-0.90); MONOCYTES PERCENT AUTO 6.5 % (3.3-12.6); NEUTROPHILS ABSOLUTE AUTO 5.73 K/uL (1.0-7.6); PLATELET COUNT,PLT 250 K/uL (130-375); RED BLOOD CELL COUNT 4.47 M/uL (3.77-5.24); WHITE BLOOD CELL COUNT,WBC 9.7 K/uL (3.2-11.0)
[2024-05-25 17:44] LABS: IMMATURE GRAN ABSOLUTE AUTO 0.02 K/uL (0.00-0.23)
[2024-05-25] MEDS: Sodium Chloride 0.9% 1,000 ML IV STA (17:45)
[2024-05-25] MEDS: Sodium Chloride 0.9% 10 ML Syringe FLUSH PRN (18:01)
[2024-05-25] MEDS: Iopamidol 612 MG/ML 100 ML Bottle IV SCH (18:01)
[2024-05-25] MEDS: Sodium Chloride 0.9% 60 ML IV SCH (18:01)
[2024-05-25] MEDS: fentaNYL 100 MCG/2 ML SDV IVPUSH ONE (18:12)
[2024-05-25 18:14] LABS: A/G RATIO 1.2 (1.2-2.2); ALANINE AMINOTRANSFERASE,ALT 18 U/L (12-78); ALBUMIN 3.8 g/dL (3.4-5.0); ALKALINE PHOSPHATASE 91 U/L (46-116); ASPARTATE AMNIOTRANSFERASE,AST 17 U/L (15-37); BILIRUBIN TOTAL 0.3 mg/dL (0.2-1.0); BLOOD UREA NITROGEN,BUN 15 mg/dL (7-18); CALCIUM 9.3 mg/dL (8.5-10.1); CARBON DIOXIDE,CO2 27 mmol/L (21-32); CHLORIDE,CL 105 mmol/L (100-108); CREATININE 0.7 mg/dL (0.6-1.0); EST CRCL DRUG DOSING (CG) 72.66 mL/min; ESTIMATED GFR 103 mL/min (>60); GLUCOSE RANDOM 94 mg/dL (74-106); POTASSIUM,K 4.4 mmol/L (3.6-5.2); SODIUM,NA 140 mmol/L (140-148)
[2024-05-25 18:39] VITALS: BP 121/80; PULSE 68
== END 2024-05-25 19:46 | disposition home or self-care (01) ==
LOC: JP.ED 15:45
DX: N13.2 Hydronephrosis with renal and ureteral calculous obstruction (principal); F17.210 Nicotine dependence, cigarettes, uncomplicated; Z90.89 Acquired absence of other organs; Z79.899 Other long term (current) drug therapy
CPT/HCPCS: 36415; 74177; 80053; 81001; 83605; 83690; 85025; 87086; 96372; 96374; 99284; J1885; J3010; J3490; J7030; Q9967